=== PATIENT | male | born 1945 | race Two or more races ===

== ENCOUNTER 2020-10-12 08:18 | Inpatient (IN) | payer MEDICARE, OTHER, SELFPAY ==
[~2020-10-12] VITALS: Ht 165.1 cm; Wt 48.1 kg
[2020-10-12] MEDS ORDERED: DEXTROSE (50%) 50ML SYRG IV PRN (08:45)
[2020-10-12] MEDS ORDERED: INSULIN LANTUS (GLARGINE) 1 /0.01ml (100units/ml) SC ONE (08:45)
[2020-10-12] MEDS ORDERED: SODIUM CHLORIDE 0.9% 1,000 ML IV ONE (08:45)
[2020-10-12] MEDS ORDERED: InsuLIN R (HUMAN) 100 UNITS in SODIUM CHL 0.9% 99 ML IV SCH ×2 (08:45→14:30)
[2020-10-12] MEDS ORDERED: SODIUM BICARBONATE 8.4 % INJ 50ML VIAL IV ONE ×2 (09:15)
[2020-10-12 10:27] LABS: Basophils # (auto) 0.4 10 ^3/uL (0-0.2); Basophils % (auto) 2.3 % (0.0-2.0); Eosinophils # (auto) 0 10 ^3/uL (0-0.8); Hematocrit 45.9 % (41.0-53.0); Hemoglobin 14.9 g/dL (13.5-17.5); Lymphocytes # (auto) 0.6 10 ^3/uL (0.4-5.4); Lymphocytes % (auto) 3.4 % (10.0-50.0); Mean Corpuscular Hemoglobin 32.4 pg (28.0-32.0); Mean Corpuscular Hgb Conc. 32.4 g/dL (32.0-36.0); Monocytes # (auto) 0.7 10 ^3/uL (0-1.3); Monocytes % (auto) 4.3 % (0.0-12.0); Neutrophils # (auto) 14.8 10 ^3/uL (1.6-8.6); Nucleated Red Blood Cells % 0.1 %; Red Blood Cells 4.59 10^6/uL (4.5-5.90); Red Cell Distribution Width 13.8 % (11.8-14.3); White Blood Cell 16.5 10^3/uL (4.4-10.8)
[2020-10-12] MEDS: ACCU-CHEK COMFORT CURVE STRIP VI SCH ×10 (10:30→22:27)
[2020-10-12] MEDS ORDERED: dilTIAZem 25 MG/5 ML VIAL IV ONE ×2 (12:15→20:00)
[2020-10-12] MEDS ORDERED: REMDESIVIR PER PHARMACY 0 ML IV SCH (12:15)
[2020-10-12] MEDS ORDERED: ACETAMINOPHEN 500 MG TAB PO PRN (12:15)
[2020-10-12] MEDS ORDERED: NITROGLYCERIN 0.4 MG SL TAB SL PRN (12:15)
[2020-10-12] MEDS ORDERED: HYDROcodone-ACET 5/325MG TAB PO PRN (12:15)
[2020-10-12] MEDS ORDERED: MORPHINE SULFATE INJECTION 2 MG/ML SYRG IV PRN ×2 (12:15)
[2020-10-12] MEDS: SOD CHL 0.45% 1,000 ML IV SCH ×2 (12:41→23:44)
[2020-10-12] MEDS: cefTRIAXone 1GM/50ML D5W 50 ML IV SCH (13:11)
[2020-10-12 13:50] LABS: Lactic Acid w/Reflex 6.3 mmol/L (0.4-2.0)
[2020-10-12 14:07] LABS: Albumin 2.3 g/dL (3.4-5.0); Calcium 8.3 mg/dL (8.5-10.1); Potassium 4.4 mmol/L (3.5-5.1)
[2020-10-12 14:16] LABS: Bilirubin, Total 0.5 mg/dL (0.2-1.0); CRP High Sensitivity 14.3 mg/dL (< 0.3); Total Protein 7.4 g/dL (6.4-8.2)
[2020-10-12 14:17] LABS: BUN/Creatinine Ratio 30.2
[2020-10-12] MEDS ORDERED: DIGOXIN (250MCG/ML) 2 ML AMPULE ONE (14:34)
[2020-10-12] MEDS ORDERED: DIGOXIN (250MCG/ML) 2 ML AMPULE IV ONE (14:45)
[2020-10-12] MEDS: DIGOXIN (250MCG/ML) 2 ML AMPULE IV SCH ×2 (16:34→22:20)
[2020-10-12] MEDS: AZITHROMYCIN 500MG/ 250ML 250 ML IV SCH (16:45)
[2020-10-12] MEDS ORDERED: InsuLIN REG 1unit/0.01ml Soln (100units/ml) IV ONE (16:45)
[2020-10-12] MEDS: dilTIAZem 125mg/125ml BAG KIT 100 ML IV SCH (16:46)
[2020-10-12] MEDS ORDERED: InsuLIN REG 1unit/0.01ml Soln (100units/ml) SC SCH (17:00)
[2020-10-12 17:13] LABS: Calcium 8.2 mg/dL (8.5-10.1); Magnesium 2.7 mg/dL (1.6-2.6); Potassium 3.6 mmol/L (3.5-5.1)
[2020-10-12 17:20] LABS: BUN/Creatinine Ratio 36.8
[2020-10-12] MEDS ORDERED: dilTIAZem 125mg/125ml BAG KIT 100 ML IV SCH ×2 (17:30)
[2020-10-12 17:57] LABS: Urine Amorphous Crystal FEW /hpf (None Seen); Urine Bacteria NONE SEEN /hpf (None Seen); Urine Blood 2+ /uL (Negative); Urine Specific Gravity 1.025 (1.001-1.035); Urine WBC 5 /hpf (0 - 3)
[2020-10-12] MEDS ORDERED: REMDESIVIR 200 MG in NS 210ml LOADING DOSE ADULT IV ONE (18:00)
[2020-10-12] MEDS: ENOXAPARIN SOD 40 MG/0.4 ML SYRINGE SC SCH (22:20)
[2020-10-12 23:19] LABS: BUN/Creatinine Ratio 41.8; Calcium 7.5 mg/dL (8.5-10.1); Potassium 3.1 mmol/L (3.5-5.1)
[2020-10-12 23:22] LABS: Bilirubin, Total 0.2 mg/dL (0.2-1.0); Total Protein 5.5 g/dL (6.4-8.2)
[2020-10-12] MEDS: BUDESONIDE (INHALATION) 180 MCG IH IN SCH (23:25)
[2020-10-13] MEDS ORDERED: DIGOXIN (250MCG/ML) 2 ML AMPULE IV ONE (00:45)
[2020-10-13] MEDS: ACCU-CHEK COMFORT CURVE STRIP VI SCH ×7 (00:50→23:04)
[2020-10-13] MEDS ORDERED: POTASSIUM CHL 20MEQ/100ML 100 ML IV ONE (02:45)
[2020-10-13] MEDS ORDERED: ONDANSETRON HCL 4 MG/2 ML VIAL ONE (04:25)
[2020-10-13] MEDS: DIGOXIN (250MCG/ML) 2 ML AMPULE IV SCH (04:42)
[2020-10-13] MEDS ORDERED: ONDANSETRON HCL 4 MG/2 ML VIAL IV PRN (04:45)
[2020-10-13] MEDS: diphenhdrAMINE HCL 50 MG/1 ML VL IV PRN ×2 (05:45→16:41)
[2020-10-13 05:46] LABS: Basophils # (auto) 0 10 ^3/uL (0-0.2); Basophils % (auto) 0.1 % (0.0-2.0); Eosinophils # (auto) 0 10 ^3/uL (0-0.8); Eosinophils % (auto) 0.3 % (0.0-7.0); Hematocrit 35.4 % (41.0-53.0); Hemoglobin 12.3 g/dL (13.5-17.5); Lymphocytes # (auto) 0.9 10 ^3/uL (0.4-5.4); Lymphocytes % (auto) 5.5 % (10.0-50.0); Mean Corpuscular Hemoglobin 32.5 pg (28.0-32.0); Mean Corpuscular Hgb Conc. 34.7 g/dL (32.0-36.0); Mean Corpuscular Volume 93.7 fL (80.0-100.0); Monocytes # (auto) 0.5 10 ^3/uL (0-1.3); Monocytes % (auto) 3.4 % (0.0-12.0); Neutrophils # (auto) 14.4 10 ^3/uL (1.6-8.6); Neutrophils % (auto) 90.7 % (37.0-80.0); Red Blood Cells 3.77 10^6/uL (4.5-5.90); Red Cell Distribution Width 13.2 % (11.8-14.3); White Blood Cell 15.9 10^3/uL (4.4-10.8)
[2020-10-13 07:14] LABS: Calcium 7.5 mg/dL (8.5-10.1); Potassium 4.3 mmol/L (3.5-5.1)
[2020-10-13 07:23] LABS: Albumin 2.2 g/dL (3.4-5.0); BUN/Creatinine Ratio 52.3; Bilirubin, Direct 0.2 mg/dL (0-0.2); Bilirubin, Total 0.3 mg/dL (0.2-1.0); Total Protein 6.5 g/dL (6.4-8.2)
[2020-10-13] MEDS ORDERED: CARBIDOPA W LEVODOPA 25/100mg TABLET PO SCH (07:30)
[2020-10-13] MEDS ORDERED: D5W/SOD CHL 0.45% 1,000 ML IV SCH (08:00)
[2020-10-13] MEDS ORDERED: DEXTROSE (50%) 50ML SYRG IV PRN (08:15)
[2020-10-13] MEDS: AZITHROMYCIN 500MG/ 250ML 250 ML IV SCH (08:38)
[2020-10-13] MEDS: ZINC SULFATE 220mg CAP or TAB PO SCH (08:38)
[2020-10-13] MEDS: ASCORBIC ACID 1,000 MG TAB PO SCH (08:38)
[2020-10-13] MEDS: DexAMETHasone SOD PHOS 10MG/1ML VIAL INJ IV SCH (08:38)
[2020-10-13] MEDS: cefTRIAXone 1GM/50ML D5W 50 ML IV SCH (08:38)
[2020-10-13] MEDS: DIGOXIN 0.125 MG TAB PO SCH (08:38)
[2020-10-13] MEDS: CHOLECALCIFEROL (VITD3) 2,000 UNIT CAP/TAB PO SCH (08:39)
[2020-10-13] MEDS: ENOXAPARIN SOD 40 MG/0.4 ML SYRINGE SC SCH (08:39)
[2020-10-13] MEDS: dilTIAZem 125mg/125ml BAG KIT 100 ML IV SCH ×2 (08:44→16:41)
[2020-10-13] MEDS ORDERED: HALOPERIDOL LACTATE 5 MG/ML INJ VIAL ONE (09:11)
[2020-10-13] MEDS ORDERED: diphenhdrAMINE HCL 50 MG/1 ML VL ONE (09:12)
[2020-10-13] MEDS ORDERED: dilTIAZem 120MG ER CAP PO SCH (10:00)
[2020-10-13] MEDS: INSULIN LANTUS (GLARGINE) 1 /0.01ml (100units/ml) SC SCH ×2 (10:00→16:21)
[2020-10-13] MEDS: BUDESONIDE (INHALATION) 180 MCG IH IN SCH ×2 (10:00→22:00)
[2020-10-13] MEDS: InsuLIN REG 1unit/0.01ml Soln (100units/ml) SC SCH ×3 (11:26→23:12)
[2020-10-13] MEDS ORDERED: AMIODARONE HCL 150 MG in D5W 5% 100 ML IV ONE (12:45)
[2020-10-13] MEDS ORDERED: AMIODARONE 450mg/250ml AE 250 ML IV SCH (13:00)
[2020-10-13] MEDS ORDERED: AMIODARONE 450mg/250ml AE 250 ML IV ONE (13:00)
[2020-10-13] MEDS: REMDESIVIR 100 MG in SODIUM CHL 0.9% 250 ML IV SCH (15:34)
[2020-10-13] MEDS: HALOPERIDOL LACTATE 5 MG/ML INJ VIAL IM PRN (16:41)
[2020-10-13] MEDS: LORazepam 2MG/ML-1ML VIAL IV PRN (20:34)
[2020-10-13] MEDS: ENOXAPARIN SOD 80 MG/0.8ML SYRINGE SC SCH (23:12)
[2020-10-13] MEDS: AMIODARONE 450mg/250ml AE 250 ML IV SCH (23:58)
[2020-10-14] MEDS: InsuLIN REG 1unit/0.01ml Soln (100units/ml) SC SCH ×4 (07:00→20:43)
[2020-10-14] MEDS: ACCU-CHEK COMFORT CURVE STRIP VI SCH ×4 (07:00→20:44)
[2020-10-14] MEDS: DIGOXIN 0.125 MG TAB PO SCH (07:34)
[2020-10-14] MEDS: ASCORBIC ACID 1,000 MG TAB PO SCH (07:34)
[2020-10-14] MEDS: ENOXAPARIN SOD 80 MG/0.8ML SYRINGE SC SCH ×2 (07:34→20:44)
[2020-10-14] MEDS: INSULIN LANTUS (GLARGINE) 1 /0.01ml (100units/ml) SC SCH (07:34)
[2020-10-14] MEDS: CHOLECALCIFEROL (VITD3) 2,000 UNIT CAP/TAB PO SCH (07:34)
[2020-10-14] MEDS: ZINC SULFATE 220mg CAP or TAB PO SCH (07:35)
[2020-10-14] MEDS: cefTRIAXone 1GM/50ML D5W 50 ML IV SCH (07:35)
[2020-10-14] MEDS: DexAMETHasone SOD PHOS 10MG/1ML VIAL INJ IV SCH (07:35)
[2020-10-14] MEDS: LORazepam 2MG/ML-1ML VIAL IV PRN ×2 (09:11→18:00)
[2020-10-14 09:43] LABS: Basophils # (auto) 0.1 10 ^3/uL (0-0.2); Basophils % (auto) 0.7 % (0.0-2.0); Eosinophils # (auto) 0 10 ^3/uL (0-0.8); Hematocrit 35.7 % (41.0-53.0); Hemoglobin 11.9 g/dL (13.5-17.5); Lymphocytes # (auto) 0.4 10 ^3/uL (0.4-5.4); Lymphocytes % (auto) 2.7 % (10.0-50.0); Mean Corpuscular Hemoglobin 32.4 pg (28.0-32.0); Mean Corpuscular Hgb Conc. 33.4 g/dL (32.0-36.0); Mean Corpuscular Volume 97.2 fL (80.0-100.0); Monocytes # (auto) 0.5 10 ^3/uL (0-1.3); Monocytes % (auto) 3.4 % (0.0-12.0); Neutrophils # (auto) 12.9 10 ^3/uL (1.6-8.6); Neutrophils % (auto) 93.2 % (37.0-80.0); Red Blood Cells 3.67 10^6/uL (4.5-5.90); Red Cell Distribution Width 13.3 % (11.8-14.3); White Blood Cell 13.8 10^3/uL (4.4-10.8)
[2020-10-14 09:58] LABS: BUN/Creatinine Ratio 34.9; Calcium 7.1 mg/dL (8.5-10.1)
[2020-10-14] MEDS: AZITHROMYCIN 500MG/ 250ML 250 ML IV SCH (10:00)
[2020-10-14] MEDS: BUDESONIDE (INHALATION) 180 MCG IH IN SCH ×2 (10:00→22:00)
[2020-10-14] MEDS: AMIODARONE 450mg/250ml AE 250 ML IV SCH ×2 (10:00→23:57)
[2020-10-14 10:03] LABS: Bilirubin, Total 0.3 mg/dL (0.2-1.0); Total Protein 6.2 g/dL (6.4-8.2)
[2020-10-14] MEDS: diphenhdrAMINE HCL 50 MG/1 ML VL IV PRN (14:47)
[2020-10-14] MEDS: HALOPERIDOL LACTATE 5 MG/ML INJ VIAL IM PRN (14:47)
[2020-10-14] MEDS: REMDESIVIR 100 MG in SODIUM CHL 0.9% 250 ML IV SCH (14:53)
[2020-10-14 16:25] VITALS: BP 118/58
[2020-10-14 16:40] VITALS: BP 115/90
[2020-10-14 18:08] VITALS: BP 122/85
[2020-10-15] MEDS: HALOPERIDOL LACTATE 5 MG/ML INJ VIAL IM PRN (00:13)
[2020-10-15] MEDS: InsuLIN REG 1unit/0.01ml Soln (100units/ml) SC SCH ×3 (06:32→23:08)
[2020-10-15] MEDS: ACCU-CHEK COMFORT CURVE STRIP VI SCH ×3 (06:32→23:09)
[2020-10-15] MEDS: cefTRIAXone 1GM/50ML D5W 50 ML IV SCH (12:37)
[2020-10-15] MEDS: BUDESONIDE (INHALATION) 180 MCG IH IN SCH ×2 (12:37→22:00)
[2020-10-15] MEDS: ZINC SULFATE 220mg CAP or TAB PO SCH (12:37)
[2020-10-15] MEDS: ASCORBIC ACID 1,000 MG TAB PO SCH (12:39)
[2020-10-15] MEDS: CHOLECALCIFEROL (VITD3) 2,000 UNIT CAP/TAB PO SCH (12:40)
[2020-10-15] MEDS: DexAMETHasone SOD PHOS 10MG/1ML VIAL INJ IV SCH (13:09)
[2020-10-15] MEDS: ENOXAPARIN SOD 80 MG/0.8ML SYRINGE SC SCH ×2 (14:52→22:00)
[2020-10-15] MEDS: INSULIN LANTUS (GLARGINE) 1 /0.01ml (100units/ml) SC SCH (14:52)
[2020-10-15] MEDS: AZITHROMYCIN 500MG/ 250ML 250 ML IV SCH (14:57)
[2020-10-15] MEDS: REMDESIVIR 100 MG in SODIUM CHL 0.9% 250 ML IV SCH (15:00)
[2020-10-15] MEDS: AMIODARONE 450mg/250ml AE 250 ML IV SCH (16:00)
[2020-10-15] MEDS ORDERED: CLINIMIX PER PHARMACY 0 ML IV SCH (19:30)
[2020-10-15] MEDS: AMINO ACID INFUSION IN D10W 1,000 ML IV NR (20:00)
[2020-10-16] MEDS: LORazepam 2MG/ML-1ML VIAL IV PRN (01:17)
[2020-10-16] MEDS: diphenhdrAMINE HCL 50 MG/1 ML VL IV PRN (01:18)
[2020-10-16] MEDS: ACCU-CHEK COMFORT CURVE STRIP VI SCH ×3 (06:00→16:32)
[2020-10-16] MEDS: InsuLIN REG 1unit/0.01ml Soln (100units/ml) SC SCH ×3 (06:00→16:32)
[2020-10-16] MEDS: AMIODARONE 450mg/250ml AE 250 ML IV SCH ×2 (06:33→21:52)
[2020-10-16 08:19] LABS: Albumin 2.3 g/dL (3.4-5.0); Calcium 8.1 mg/dL (8.5-10.1); Potassium 3.8 mmol/L (3.5-5.1)
[2020-10-16 08:24] LABS: BUN/Creatinine Ratio 40.2; Bilirubin, Total 0.4 mg/dL (0.2-1.0); Magnesium 2.2 mg/dL (1.6-2.6); Phosphorus 2.9 mg/dL (2.5-4.90); Pre Albumin 8.3 mg/dL (20.0-40.0); Total Protein 6.9 g/dL (6.4-8.2)
[2020-10-16] MEDS: BUDESONIDE (INHALATION) 180 MCG IH IN SCH ×2 (10:00→22:00)
[2020-10-16] MEDS: DexAMETHasone SOD PHOS 10MG/1ML VIAL INJ IV SCH (12:39)
[2020-10-16] MEDS: cefTRIAXone 1GM/50ML D5W 50 ML IV SCH (12:39)
[2020-10-16] MEDS: AZITHROMYCIN 500MG/ 250ML 250 ML IV SCH (12:40)
[2020-10-16] MEDS: ZINC SULFATE 220mg CAP or TAB PO SCH (12:40)
[2020-10-16] MEDS: INSULIN LANTUS (GLARGINE) 1 /0.01ml (100units/ml) SC SCH (12:40)
[2020-10-16] MEDS: ASCORBIC ACID 1,000 MG TAB PO SCH (12:40)
[2020-10-16] MEDS: CHOLECALCIFEROL (VITD3) 2,000 UNIT CAP/TAB PO SCH (12:40)
[2020-10-16] MEDS: ENOXAPARIN SOD 80 MG/0.8ML SYRINGE SC SCH ×2 (12:41→21:56)
[2020-10-16] MEDS: REMDESIVIR 100 MG in SODIUM CHL 0.9% 250 ML IV SCH (15:38)
[2020-10-16] MEDS ORDERED: FUROSEMIDE 40 MG/4 ML VIAL IV ONE (16:45)
[2020-10-16] MEDS: AMINO ACID INFUSION IN D10W 1,000 ML IV NR ×2 (19:49→20:00)
[2020-10-16] MEDS ORDERED: CLINIMIX PER PHARMACY IV NR (20:00)
[2020-10-16] MEDS: DEXTROSE (50%) 50ML SYRG IV SCH (22:02)
[2020-10-17 05:22] LABS: Albumin 2.4 g/dL (3.4-5.0); Magnesium 2.1 mg/dL (1.6-2.6); Potassium 3.1 mmol/L (3.5-5.1)
[2020-10-17 05:26] LABS: BUN/Creatinine Ratio 42.7; Bilirubin, Total 0.4 mg/dL (0.2-1.0); Phosphorus 3.4 mg/dL (2.5-4.90); Total Protein 7.2 g/dL (6.4-8.2)
[2020-10-17] MEDS: InsuLIN REG 1unit/0.01ml Soln (100units/ml) SC SCH ×4 (06:00→16:44)
[2020-10-17] MEDS: ACCU-CHEK COMFORT CURVE STRIP VI SCH ×4 (06:09→16:47)
[2020-10-17] MEDS ORDERED: POTASSIUM CHLORIDE 60 MEQ, LIDOCAINE 1% (LOCAL ANESTH.) 6 ML in SODIUM CHL 0.9% 500 ML IV ONE (09:15)
[2020-10-17] MEDS: DEXTROSE (50%) 50ML SYRG IV SCH (09:22)
[2020-10-17] MEDS: CHOLECALCIFEROL (VITD3) 2,000 UNIT CAP/TAB PO SCH (09:53)
[2020-10-17] MEDS: DexAMETHasone SOD PHOS 10MG/1ML VIAL INJ IV SCH (09:53)
[2020-10-17] MEDS: AZITHROMYCIN 500MG/ 250ML 250 ML IV SCH (09:53)
[2020-10-17] MEDS: ASCORBIC ACID 1,000 MG TAB PO SCH (09:53)
[2020-10-17] MEDS: cefTRIAXone 1GM/50ML D5W 50 ML IV SCH (09:53)
[2020-10-17] MEDS: ZINC SULFATE 220mg CAP or TAB PO SCH (09:53)
[2020-10-17] MEDS: ENOXAPARIN SOD 80 MG/0.8ML SYRINGE SC SCH (09:54)
[2020-10-17] MEDS: INSULIN LANTUS (GLARGINE) 1 /0.01ml (100units/ml) SC SCH (09:55)
[2020-10-17] MEDS: BUDESONIDE (INHALATION) 180 MCG IH IN SCH ×2 (10:00→22:00)
[2020-10-17] MEDS ORDERED: FUROSEMIDE 40 MG/4 ML VIAL IV SCH (10:00)
[2020-10-17] MEDS ORDERED: AMIODARONE HCL 200 MG TAB PO SCH (10:00)
[2020-10-17] MEDS: REMDESIVIR 100 MG in SODIUM CHL 0.9% 250 ML IV SCH (15:09)
[2020-10-17] MEDS: AMINO ACID INFUSION IN D10W 1,000 ML IV NR ×2 (19:49→22:39)
[2020-10-17] MEDS ORDERED: LORazepam 2MG/ML-1ML VIAL IV PRN (22:30)
[2020-10-17] MEDS: ENOXAPARIN SOD 60 MG/0.6 ML SYRINGE SC SCH (22:38)
[2020-10-17] MEDS: AMIODARONE HCL 200 MG TAB PO SCH (22:39)
[2020-10-17] MEDS ORDERED: ONDANSETRON HCL 4 MG/2 ML VIAL IV PRN (22:45)
[2020-10-17] MEDS ORDERED: MORPHINE SULFATE INJECTION 2 MG/ML SYRG IV PRN ×2 (22:45)
[2020-10-17] MEDS ORDERED: diphenhdrAMINE HCL 50 MG/1 ML VL IV PRN (22:45)
[2020-10-17] MEDS ORDERED: ACETAMINOPHEN 500 MG TAB PO PRN (22:45)
[2020-10-17] MEDS ORDERED: DEXTROSE (50%) 50ML SYRG IV SCH (22:45)
[2020-10-17] MEDS ORDERED: NITROGLYCERIN 0.4 MG SL TAB SL PRN (22:45)
[2020-10-17] MEDS ORDERED: HALOPERIDOL LACTATE 5 MG/ML INJ VIAL IM PRN (22:45)
[2020-10-18] VITALS: BP 144/86
[2020-10-18] MEDS: ACCU-CHEK COMFORT CURVE STRIP VI SCH ×5 (00:20→23:36)
[2020-10-18] MEDS: InsuLIN REG 1unit/0.01ml Soln (100units/ml) SC SCH ×5 (00:20→23:36)
[2020-10-18 07:15] LABS: Potassium 4.2 mmol/L (3.5-5.1)
[2020-10-18 07:22] LABS: Bilirubin, Total 0.4 mg/dL (0.2-1.0); Calcium 7.3 mg/dL (8.5-10.1); Phosphorus 3.6 mg/dL (2.5-4.90); Total Protein 6.1 g/dL (6.4-8.2)
[2020-10-18 08:00] VITALS: BP 100/54
[2020-10-18] MEDS: cefTRIAXone 1GM/50ML D5W 50 ML IV SCH (09:00)
[2020-10-18] MEDS: BUDESONIDE (INHALATION) 180 MCG IH IN SCH ×2 (10:00→22:10)
[2020-10-18] MEDS ORDERED: ASCORBIC ACID 1,000 MG TAB PO SCH (10:00)
[2020-10-18] MEDS ORDERED: FUROSEMIDE 40 MG/4 ML VIAL IV SCH (10:00)
[2020-10-18] MEDS ORDERED: ZINC SULFATE 220mg CAP or TAB PO SCH (10:00)
[2020-10-18] MEDS ORDERED: CHOLECALCIFEROL (VITD3) 2,000 UNIT CAP/TAB PO SCH (10:00)
[2020-10-18] MEDS ORDERED: INSULIN LANTUS (GLARGINE) 1 /0.01ml (100units/ml) SC SCH (10:00)
[2020-10-18] MEDS: dilTIAZem 120MG ER CAP PO SCH (10:30)
[2020-10-18] MEDS: ENOXAPARIN SOD 60 MG/0.6 ML SYRINGE SC SCH (10:30)
[2020-10-18] MEDS: AMIODARONE HCL 200 MG TAB PO SCH ×2 (10:30→21:37)
[2020-10-18] MEDS: AZITHROMYCIN 500MG/ 250ML 250 ML IV SCH (10:30)
[2020-10-18] MEDS: DexAMETHasone SOD PHOS 10MG/1ML VIAL INJ IV SCH (10:30)
[2020-10-18 16:30] VITALS: BP 95/52
[2020-10-18] MEDS: AMINO ACID INFUSION IN D10W 1,000 ML IV NR ×2 (19:49→22:12)
[2020-10-18] MEDS: Glucerna Carbsteady SHAKE Vanilla 8oz PO SCH (21:37)
[2020-10-18] MEDS: APIXABAN 5 MG TAB PO SCH (21:37)
[2020-10-18 22:43] LABS: Folate (Folic Acid) 10.16 ng/mL (5.38-24)
[2020-10-19] VITALS: BP 93/41
[2020-10-19] MEDS: ACCU-CHEK COMFORT CURVE STRIP VI SCH ×4 (05:34→23:25)
[2020-10-19] MEDS: InsuLIN REG 1unit/0.01ml Soln (100units/ml) SC SCH ×4 (05:35→23:32)
[2020-10-19 08:00] VITALS: BP 99/50
[2020-10-19 08:58] LABS: Potassium 3.4 mmol/L (3.5-5.1)
[2020-10-19 09:51] LABS: Albumin 1.9 g/dL (3.4-5.0); BUN/Creatinine Ratio 45.4; Bilirubin, Total 0.4 mg/dL (0.2-1.0); Calcium 6.6 mg/dL (8.5-10.1); Magnesium 1.8 mg/dL (1.6-2.6); Phosphorus 3.5 mg/dL (2.5-4.90); Total Protein 5.9 g/dL (6.4-8.2)
[2020-10-19] MEDS: BUDESONIDE (INHALATION) 180 MCG IH IN SCH ×2 (09:52→19:58)
[2020-10-19] MEDS: dilTIAZem 120MG ER CAP PO SCH (10:00)
[2020-10-19] MEDS: AZITHROMYCIN 500MG/ 250ML 250 ML IV SCH (10:00)
[2020-10-19] MEDS: cefTRIAXone 1GM/50ML D5W 50 ML IV SCH (10:00)
[2020-10-19] MEDS: DexAMETHasone SOD PHOS 10MG/1ML VIAL INJ IV SCH (10:00)
[2020-10-19] MEDS: AMIODARONE HCL 200 MG TAB PO SCH ×2 (10:01→21:12)
[2020-10-19] MEDS: APIXABAN 5 MG TAB PO SCH ×2 (10:10→21:13)
[2020-10-19] MEDS: INSULIN LANTUS (GLARGINE) 1 /0.01ml (100units/ml) SC SCH (10:18)
[2020-10-19] MEDS: Glucerna Carbsteady SHAKE Vanilla 8oz PO SCH ×2 (10:21→18:36)
[2020-10-19] MEDS ORDERED: SODIUM CHLORIDE 0.9% 500 ML IV ONE (12:00)
[2020-10-19] MEDS ORDERED: POTASSIUM CHL 20MEQ/100ML 100 ML IV ONE (12:45)
[2020-10-19 14:44] VITALS: BP 91/59
[2020-10-19] MEDS ORDERED: CALCIUM GLUC 4.65meq/50ml D5AE 50 ML IV ONE (15:00)
[2020-10-19 16:00] VITALS: BP 98/50
[2020-10-19] MEDS: AMINO ACID INFUSION IN D10W 1,000 ML IV NR ×2 (19:20→21:12)
[2020-10-19] MEDS: ALBUTEROL SULF HFA 90MCG INH 200DOSE IN PRN (19:59)
[2020-10-20] VITALS: BP 112/67
[2020-10-20] MEDS: InsuLIN REG 1unit/0.01ml Soln (100units/ml) SC SCH ×4 (05:52→23:59)
[2020-10-20] MEDS: ACCU-CHEK COMFORT CURVE STRIP VI SCH ×4 (05:52→23:59)
[2020-10-20 08:00] VITALS: BP 97/57
[2020-10-20 08:10] LABS: Hematocrit 39.5 % (41.0-53.0); Hemoglobin 13.1 g/dL (13.5-17.5); Mean Corpuscular Hemoglobin 31.2 pg (28.0-32.0); Mean Corpuscular Hgb Conc. 33.1 g/dL (32.0-36.0); Mean Corpuscular Volume 94.4 fL (80.0-100.0); Red Blood Cells 4.19 10^6/uL (4.5-5.90); Red Cell Distribution Width 13.5 % (11.8-14.3); White Blood Cell 20.1 10^3/uL (4.4-10.8)
[2020-10-20 08:28] LABS: Potassium 3.4 mmol/L (3.5-5.1)
[2020-10-20 08:48] LABS: Basophils % (manual) 0 (0.0-2.0); Blast Cells 0; Eosinophils % (manual) 0 (0-7); Metamyelocytes % 0; Promyelocytes % 0; Reactive Lymphocytes 0
[2020-10-20 09:07] LABS: Albumin 1.9 g/dL (3.4-5.0); BUN/Creatinine Ratio 45.2; Bilirubin, Total 0.4 mg/dL (0.2-1.0); Magnesium 1.8 mg/dL (1.6-2.6); Phosphorus 2.7 mg/dL (2.5-4.90); Total Protein 5.6 g/dL (6.4-8.2)
[2020-10-20] MEDS: BUDESONIDE (INHALATION) 180 MCG IH IN SCH ×2 (09:30→20:12)
[2020-10-20] MEDS: ALBUTEROL SULF HFA 90MCG INH 200DOSE IN PRN ×2 (09:30→20:12)
[2020-10-20] MEDS: dilTIAZem 120MG ER CAP PO SCH (10:00)
[2020-10-20] MEDS: AZITHROMYCIN 500MG/ 250ML 250 ML IV SCH (10:00)
[2020-10-20] MEDS: cefTRIAXone 1GM/50ML D5W 50 ML IV SCH (10:39)
[2020-10-20] MEDS: APIXABAN 5 MG TAB PO SCH ×2 (10:39→21:38)
[2020-10-20] MEDS: DexAMETHasone SOD PHOS 10MG/1ML VIAL INJ IV SCH (10:39)
[2020-10-20] MEDS: AMIODARONE HCL 200 MG TAB PO SCH ×2 (10:39→21:38)
[2020-10-20] MEDS: Glucerna Carbsteady SHAKE Vanilla 8oz PO SCH ×2 (10:39→18:00)
[2020-10-20] MEDS: INSULIN LANTUS (GLARGINE) 1 /0.01ml (100units/ml) SC SCH (10:40)
[2020-10-20 11:10] LABS: Band Neutrophils % (manual) 4; Lymphocytes % (manual) 3 (10.0-50.0); Monocytes % (manual) 3 (0-12); Myelocytes % 1
[2020-10-20] MEDS ORDERED: POTASSIUM PHOSPHATE 26.4 MEQ in SODIUM CHL 0.9% 100 ML IV ONE (11:15)
[2020-10-20] MEDS: HYDROcodone-ACET 5/325MG TAB PO PRN (12:11)
[2020-10-20] MEDS: AMINO ACID INFUSION IN D10W 1,000 ML IV NR (13:10)
[2020-10-20] MEDS ORDERED: POTASSIUM EFFERVESENT TAB 25 MEQ PO ONE (13:30)
[2020-10-20 16:00] VITALS: BP 106/62
[2020-10-20] MEDS ORDERED: AMINO ACID INFUSION IN D10W 1,000 ML IV NR (20:00)
[2020-10-21] VITALS: BP 118/68
[2020-10-21] MEDS: InsuLIN REG 1unit/0.01ml Soln (100units/ml) SC SCH ×4 (05:28→23:41)
[2020-10-21] MEDS: ACCU-CHEK COMFORT CURVE STRIP VI SCH ×4 (05:28→23:42)
[2020-10-21] MEDS: BUDESONIDE (INHALATION) 180 MCG IH IN SCH ×2 (07:05→10:00)
[2020-10-21 07:48] VITALS: BP 95/68
[2020-10-21] MEDS: Glucerna Carbsteady SHAKE Vanilla 8oz PO SCH ×2 (08:00→17:38)
[2020-10-21] MEDS: cefTRIAXone 1GM/50ML D5W 50 ML IV SCH (09:00)
[2020-10-21] MEDS ORDERED: AMIO200T4 PO (09:51)
[2020-10-21] MEDS ORDERED: APIX5TAB PO (09:53)
[2020-10-21] MEDS ORDERED: METF-490 PO (09:54)
[2020-10-21] MEDS ORDERED: ATOR40TA52 PO (09:55)
[2020-10-21] MEDS ORDERED: GLIP10TA9 PO (09:55)
[2020-10-21] MEDS: AMIODARONE HCL 200 MG TAB PO SCH ×2 (10:00→21:05)
[2020-10-21] MEDS: dilTIAZem 120MG ER CAP PO SCH (10:00)
[2020-10-21] MEDS: INSULIN LANTUS (GLARGINE) 1 /0.01ml (100units/ml) SC SCH (10:00)
[2020-10-21] MEDS: DexAMETHasone SOD PHOS 10MG/1ML VIAL INJ IV SCH (10:00)
[2020-10-21] MEDS: AZITHROMYCIN 500MG/ 250ML 250 ML IV SCH (10:00)
[2020-10-21] MEDS: APIXABAN 5 MG TAB PO SCH ×2 (10:00→21:05)
[2020-10-21 10:25] VITALS: BP 97/57
[2020-10-21 16:00] VITALS: BP 92/41
[2020-10-21] MEDS: HYDROcodone-ACET 5/325MG TAB PO PRN (19:14)
[2020-10-22] VITALS: BP 87/52
[2020-10-22 00:32] VITALS: BP 87/52
[2020-10-22] MEDS ORDERED: SODIUM CHLORIDE 0.9% 500 ML IV ONE ×2 (02:45→11:15)
[2020-10-22] MEDS: ACCU-CHEK COMFORT CURVE STRIP VI SCH ×4 (05:23→23:37)
[2020-10-22] MEDS: InsuLIN REG 1unit/0.01ml Soln (100units/ml) SC SCH ×4 (05:24→23:37)
[2020-10-22] MEDS: BUDESONIDE (INHALATION) 180 MCG IH IN SCH ×2 (07:05→22:00)
[2020-10-22 08:00] VITALS: BP 78/51
[2020-10-22] MEDS: DexAMETHasone SOD PHOS 10MG/1ML VIAL INJ IV SCH (09:01)
[2020-10-22] MEDS: cefTRIAXone 1GM/50ML D5W 50 ML IV SCH (09:01)
[2020-10-22] MEDS: Glucerna Carbsteady SHAKE Vanilla 8oz PO SCH ×2 (09:01→18:00)
[2020-10-22] MEDS: APIXABAN 5 MG TAB PO SCH ×2 (09:02→21:57)
[2020-10-22] MEDS: dilTIAZem 120MG ER CAP PO SCH (09:02)
[2020-10-22] MEDS: AMIODARONE HCL 200 MG TAB PO SCH ×2 (09:03→21:57)
[2020-10-22] MEDS: INSULIN LANTUS (GLARGINE) 1 /0.01ml (100units/ml) SC SCH (09:15)
[2020-10-22] MEDS: AZITHROMYCIN 500MG/ 250ML 250 ML IV SCH (11:03)
[2020-10-22] MEDS: ALBUMIN 25% 100 ML IV SCH ×2 (13:00→16:12)
[2020-10-22] MEDS: SODIUM CHLORIDE 0.9% 1,000 ML IV SCH (14:13)
[2020-10-22] MEDS ORDERED: IOHEXOL 350 MG/ML 100ML IJ ONE (14:46)
[2020-10-22 16:00] VITALS: BP 102/61
[2020-10-22 19:20] LABS: Basophils # (auto) 0 10 ^3/uL (0-0.2); Basophils % (auto) 0.2 % (0.0-2.0); Eosinophils # (auto) 0 10 ^3/uL (0-0.8); Hematocrit 39.9 % (41.0-53.0); Hemoglobin 13.1 g/dL (13.5-17.5); Lymphocytes # (auto) 0.2 10 ^3/uL (0.4-5.4); Lymphocytes % (auto) 1.5 % (10.0-50.0); Mean Corpuscular Hemoglobin 32.8 pg (28.0-32.0); Mean Corpuscular Hgb Conc. 32.8 g/dL (32.0-36.0); Mean Corpuscular Volume 99.8 fL (80.0-100.0); Monocytes # (auto) 0.1 10 ^3/uL (0-1.3); Neutrophils % (auto) 97.3 % (37.0-80.0); Red Cell Distribution Width 14.5 % (11.8-14.3); White Blood Cell 14.5 10^3/uL (4.4-10.8)
[2020-10-22 19:25] LABS: Albumin 2.6 g/dL (3.4-5.0); Calcium 7.2 mg/dL (8.5-10.1); Potassium 3.5 mmol/L (3.5-5.1)
[2020-10-22 19:28] LABS: BUN/Creatinine Ratio 22.1; Bilirubin, Total 0.4 mg/dL (0.2-1.0); Total Protein 6.7 g/dL (6.4-8.2)
[2020-10-22 19:36] LABS: Cholesterol 75 mg/dL (< 200)
[2020-10-22 19:39] LABS: HDL Cholesterol 28 mg/dL (40-59); LDL Cholesterol 36 mg/dL (< 100); Triglycerides 66 mg/dL (< 150)
[2020-10-22] MEDS: HYDROcodone-ACET 5/325MG TAB PO PRN (22:07)
[2020-10-23] VITALS: BP_SYST 120; BP_SYST 122; BP_DIAS 70; BP_DIAS 72
[2020-10-23] MEDS: SODIUM CHLORIDE 0.9% 1,000 ML IV SCH ×2 (00:50→14:10)
[2020-10-23] MEDS: InsuLIN REG 1unit/0.01ml Soln (100units/ml) SC SCH ×4 (05:38→23:22)
[2020-10-23] MEDS: ACCU-CHEK COMFORT CURVE STRIP VI SCH ×4 (05:38→23:24)
[2020-10-23 07:21] LABS: Mean Corpuscular Hemoglobin 32.7 pg (28.0-32.0); Mean Corpuscular Hgb Conc. 34.3 g/dL (32.0-36.0); Mean Corpuscular Volume 95.3 fL (80.0-100.0); Red Blood Cells 3.67 10^6/uL (4.5-5.90); Red Cell Distribution Width 13.9 % (11.8-14.3); White Blood Cell 16.5 10^3/uL (4.4-10.8)
[2020-10-23 07:39] LABS: Albumin 2.3 g/dL (3.4-5.0); Calcium 7.2 mg/dL (8.5-10.1); Potassium 3.6 mmol/L (3.5-5.1)
[2020-10-23 07:43] LABS: BUN/Creatinine Ratio 27.9; Bilirubin, Total 0.5 mg/dL (0.2-1.0); Total Protein 6.1 g/dL (6.4-8.2)
[2020-10-23 07:56] LABS: Basophils % (manual) 0 (0.0-2.0); Blast Cells 0; Eosinophils % (manual) 0 (0-7); Metamyelocytes % 0; Myelocytes % 0; Promyelocytes % 0; Reactive Lymphocytes 0
[2020-10-23 08:00] VITALS: BP 119/70
[2020-10-23] MEDS: APIXABAN 5 MG TAB PO SCH ×2 (08:45→21:43)
[2020-10-23] MEDS: DexAMETHasone SOD PHOS 10MG/1ML VIAL INJ IV SCH (08:45)
[2020-10-23] MEDS: cefTRIAXone 1GM/50ML D5W 50 ML IV SCH (08:45)
[2020-10-23] MEDS: AMIODARONE HCL 200 MG TAB PO SCH ×2 (08:45→21:43)
[2020-10-23] MEDS: Glucerna Carbsteady SHAKE Vanilla 8oz PO SCH ×2 (08:57→18:40)
[2020-10-23] MEDS: BUDESONIDE (INHALATION) 180 MCG IH IN SCH ×2 (08:57→10:51)
[2020-10-23] MEDS: dilTIAZem 120MG ER CAP PO SCH (10:00)
[2020-10-23] MEDS: AZITHROMYCIN 500MG/ 250ML 250 ML IV SCH (10:17)
[2020-10-23] MEDS: INSULIN LANTUS (GLARGINE) 1 /0.01ml (100units/ml) SC SCH (10:17)
[2020-10-23] MEDS: HYDROcodone-ACET 5/325MG TAB PO PRN ×2 (10:17→18:20)
[2020-10-23] MEDS: ALBUTEROL SULF HFA 90MCG INH 200DOSE IN PRN (10:52)
[2020-10-23 14:42] LABS: Band Neutrophils % (manual) 4; Lymphocytes % (manual) 3 (10.0-50.0)
[2020-10-23 14:43] LABS: Monocytes % (manual) 1 (0-12)
[2020-10-23 16:00] VITALS: BP 113/61
[2020-10-24] VITALS: BP 121/68
[2020-10-24] MEDS: SODIUM CHLORIDE 0.9% 1,000 ML IV SCH ×2 (03:30→16:40)
[2020-10-24] MEDS: InsuLIN REG 1unit/0.01ml Soln (100units/ml) SC SCH ×3 (05:26→18:45)
[2020-10-24] MEDS: ACCU-CHEK COMFORT CURVE STRIP VI SCH ×3 (05:26→18:42)
[2020-10-24] MEDS: HYDROcodone-ACET 5/325MG TAB PO PRN ×3 (05:29→18:43)
[2020-10-24 05:54] VITALS: BP 126/79
[2020-10-24 08:00] VITALS: BP 133/77
[2020-10-24] MEDS: Glucerna Carbsteady SHAKE Vanilla 8oz PO SCH ×2 (08:59→18:45)
[2020-10-24] MEDS: cefTRIAXone 1GM/50ML D5W 50 ML IV SCH (08:59)
[2020-10-24] MEDS: AMIODARONE HCL 200 MG TAB PO SCH ×2 (09:00→21:43)
[2020-10-24] MEDS: APIXABAN 5 MG TAB PO SCH ×2 (09:00→21:43)
[2020-10-24] MEDS: DexAMETHasone SOD PHOS 10MG/1ML VIAL INJ IV SCH (09:00)
[2020-10-24] MEDS: INSULIN LANTUS (GLARGINE) 1 /0.01ml (100units/ml) SC SCH (09:16)
[2020-10-24] MEDS: BUDESONIDE (INHALATION) 180 MCG IH IN SCH ×3 (09:30→20:13)
[2020-10-24] MEDS: dilTIAZem 120MG ER CAP PO SCH (10:00)
[2020-10-24] MEDS: AZITHROMYCIN 500MG/ 250ML 250 ML IV SCH (10:20)
[2020-10-24 16:00] VITALS: BP 124/75
[2020-10-24] MEDS: ALBUTEROL SULF HFA 90MCG INH 200DOSE IN PRN (20:09)
[2020-10-24 23:26] VITALS: BP 117/67
[2020-10-25] VITALS: BP 121/76
[2020-10-25] MEDS: ACCU-CHEK COMFORT CURVE STRIP VI SCH ×5 (00:02→23:40)
[2020-10-25] MEDS: InsuLIN REG 1unit/0.01ml Soln (100units/ml) SC SCH ×5 (00:03→23:46)
[2020-10-25] MEDS: HYDROcodone-ACET 5/325MG TAB PO PRN ×2 (01:46→23:00)
[2020-10-25 05:50] VITALS: BP_SYST 115; BP_SYST 117; BP_DIAS 62; BP_DIAS 76
[2020-10-25] MEDS: SODIUM CHLORIDE 0.9% 1,000 ML IV SCH ×2 (05:50→19:30)
[2020-10-25] MEDS: BUDESONIDE (INHALATION) 180 MCG IH IN SCH ×2 (06:48→19:02)
[2020-10-25 08:00] VITALS: BP 125/62
[2020-10-25] MEDS: Glucerna Carbsteady SHAKE Vanilla 8oz PO SCH ×2 (08:00→17:47)
[2020-10-25] MEDS: ALBUTEROL SULF HFA 90MCG INH 200DOSE IN PRN ×2 (08:22→20:25)
[2020-10-25] MEDS: cefTRIAXone 1GM/50ML D5W 50 ML IV SCH (09:19)
[2020-10-25] MEDS: dilTIAZem 120MG ER CAP PO SCH (10:00)
[2020-10-25] MEDS: INSULIN LANTUS (GLARGINE) 1 /0.01ml (100units/ml) SC SCH (10:00)
[2020-10-25] MEDS: APIXABAN 5 MG TAB PO SCH ×2 (11:10→22:31)
[2020-10-25] MEDS: AMIODARONE HCL 200 MG TAB PO SCH ×2 (11:10→22:30)
[2020-10-25] MEDS: DexAMETHasone SOD PHOS 10MG/1ML VIAL INJ IV SCH (11:10)
[2020-10-25] MEDS: AZITHROMYCIN 500MG/ 250ML 250 ML IV SCH (11:11)
[2020-10-25 16:00] VITALS: BP 133/73
[2020-10-26] VITALS: BP 120/64
[2020-10-26] MEDS: ACCU-CHEK COMFORT CURVE STRIP VI SCH ×3 (05:37→17:43)
[2020-10-26] MEDS: InsuLIN REG 1unit/0.01ml Soln (100units/ml) SC SCH ×3 (05:42→17:43)
[2020-10-26 08:00] VITALS: BP 122/71
[2020-10-26] MEDS: SODIUM CHLORIDE 0.9% 1,000 ML IV SCH (08:50)
[2020-10-26] MEDS: cefTRIAXone 1GM/50ML D5W 50 ML IV SCH (09:28)
[2020-10-26] MEDS: AMIODARONE HCL 200 MG TAB PO SCH (09:29)
[2020-10-26] MEDS: DexAMETHasone SOD PHOS 10MG/1ML VIAL INJ IV SCH (09:29)
[2020-10-26] MEDS: Glucerna Carbsteady SHAKE Vanilla 8oz PO SCH (09:29)
[2020-10-26] MEDS: APIXABAN 5 MG TAB PO SCH (09:29)
[2020-10-26] MEDS: dilTIAZem 120MG ER CAP PO SCH (09:30)
[2020-10-26] MEDS: BUDESONIDE (INHALATION) 180 MCG IH IN SCH (09:53)
[2020-10-26] MEDS: INSULIN LANTUS (GLARGINE) 1 /0.01ml (100units/ml) SC SCH (10:00)
[2020-10-26] MEDS: AZITHROMYCIN 500MG/ 250ML 250 ML IV SCH (12:05)
[2020-10-26 16:00] VITALS: BP 98/52
== END 2020-10-26 18:40 | DRG 871 ==
LOC: EDBD 08:18 → ER 08:18 → TELE 08:19 → TELE-EAST 10-17 21:15
PROVIDERS: ADMIT Nurse Practitioner Acute Care; ATTEND Internal Medicine
PROC: XW033E5 Introduction of Remdesivir Anti-infective into Peripheral Vein, Percutaneous Approach, New Technology Group 5 (ICD-10-PCS; 2020-10-13)
PROC: XW13325 Transfusion of Convalescent Plasma (Nonautologous) into Peripheral Vein, Percutaneous Approach, New Technology Group 5 (ICD-10-PCS; principal; 2020-10-14)
DX: A41.89 Other specified sepsis (principal); E11.10 Type 2 diabetes mellitus with ketoacidosis without coma; U07.1 COVID-19; R65.21 Severe sepsis with septic shock; J96.01 Acute respiratory failure with hypoxia; G93.41 Metabolic encephalopathy; I21.A1 Myocardial infarction type 2; N17.0 Acute kidney failure with tubular necrosis; J12.82 Pneumonia due to coronavirus disease 2019; D68.59 Other primary thrombophilia; E87.0 Hyperosmolality and hypernatremia; I47.1 Supraventricular tachycardia; I48.20 Chronic atrial fibrillation, unspecified; I95.9 Hypotension, unspecified; E86.9 Volume depletion, unspecified; N18.9 Chronic kidney disease, unspecified; E87.6 Hypokalemia; E11.649 Type 2 diabetes mellitus with hypoglycemia without coma; F17.200 Nicotine dependence, unspecified, uncomplicated; I25.10 Atherosclerotic heart disease of native coronary artery without angina pectoris; H91.90 Unspecified hearing loss, unspecified ear; I35.1 Nonrheumatic aortic (valve) insufficiency; I67.2 Cerebral atherosclerosis; Z79.01 Long term (current) use of anticoagulants; Z79.4 Long term (current) use of insulin; Z82.49 Family history of ischemic heart disease and other diseases of the circulatory system; Z91.14 Patient's other noncompliance with medication regimen; E11.22 Type 2 diabetes mellitus with diabetic chronic kidney disease; I12.9 Hypertensive chronic kidney disease with stage 1 through stage 4 chronic kidney disease, or unspecified chronic kidney disease
CPT/HCPCS: 36415; 36600; 70450; 70496; 70498; 71045; 80048; 80053; 80061; 80076; 81001; 82040; 82306; 82533; 82607; 82728; 82746; 82805; 82962; 83036; 83605; 83735; 84100; 84443; 84478; 84484; 85007; 85025; 85027; 85379; 86141; 86850; 86900; 86901; 87040; 87081; 87426; 87804; 92610; 93005; 93306; 93970; 94640; 97116; 97530; 99291; G0378; J0610; J0696; J1100; J1815; J2001; J2405; J3480; J7060; P9047